=== PATIENT | female | born 1990 ===

== ENCOUNTER 2017-08-22 10:12 | Day surgery (SDC) | payer BC ==
[2017-08-20 08:20] VITALS: BMI 30.4
[2017-08-22] MEDS ORDERED: ceFAZolin 1 gm in NS 2 GM/200 ML BAG IVPB ONE (11:53)
[2017-08-22] MEDS ORDERED: Methylene Blue 10 mg/mL(10ml) IV ONE (11:53)
[2017-08-22] MEDS ORDERED: Sodium Chloride 0.9% 0 ML IV ONE (11:53)
[2017-08-22] MEDS: Lidocaine/Epinephrine 1% 1:100000 10 ML IJ ONE ×2 (12:32→13:22)
[2017-08-22] MEDS: Bupivacaine HCl 0.25% PF (30 ml) Inj ONE ×2 (12:32→13:22)
[2017-08-22] MEDS ORDERED: Midazolam 2 MG/2 ML VIAL ONE (13:12)
[2017-08-22] MEDS ORDERED: Propofol 10 mg/ml Inj (20 ML) ONE (13:12)
--- NOTE | 2017-08-22 14:03 | PCM.SURG1 ---
Surgeon's Initial Post Op Note - Surgeon's Notes Surgeon: Emre Del Real MD [facility] Department Supervisor: KASH Cohn Type of Anesthesia: MAC Pre-Operative Diagnosis: Recurrent Sebaceous cyst of right breast chest area. S /P I & D and debridement of sebaceous cyst 2 years ago Operative Findings: 2x1 cm sebaceous cyst of right breast/chest area Post-Operative Diagnosis: Recurrent Sebaceous cyst of right breast chest area. S/P I & D and debridement of sebaceous cyst 2 years ago Operation Performed: Excision of Sebaceous cyst of right breast/chest area. Revision of scar 3x1 cm. Layered closure of wound 3x2x2 cm Specimen/Specimens Removed: Sebaceous cyst. Revised scar Estimated Blood Loss: EBL {In ML}: 10 Blood Products Given: N/A Drains Used: No Drains Post-Op Condition: Good Date of Surgery/Procedure: 08/22/17 Time of Surgery/Procedure: 14:04
[2017-08-22 14:35] VITALS: BP 104/53; PULSE 66; RESP 18; TEMP 97.7; O2SAT 100
--- NOTE | 2017-08-22 23:45 | OP ---
PROCEDURE DATE: 08/22/2017 PREOPERATIVE DIAGNOSIS: Recurrent sebaceous cyst of the right breast chest area. POSTOPERATIVE DIAGNOSIS: Recurrent sebaceous cyst of the right breast chest area. PROCEDURE DONE: 1. Excision of the sebaceous cyst of the right breast chest area, 3 x 2 cm size. 2. Revision of the scar, 3 x 1 cm size. 3. Layered closure of the wound, 3 x 2 x 1 cm size. SURGEON: Willy Del Real MD FREELANCE DISPLAYER: MARCIN Cohn ANESTHESIA: General endotracheal tube anesthesia. ESTIMATED BLOOD LOSS: Around 10 mL. DRAINS: None. PATHOLOGY: 1. Sebaceous cyst was sent for pathology. 2. Revised scar tissue. COMPLICATIONS: None. INTRAOPERATIVE FINDINGS: The patient had approximately 2 x 1 cm sebaceous cyst of the right lower breast chest area, and the patient also had scar of the previous sebaceous cyst excision. DESCRIPTION OF PROCEDURE: On intraoperative steps, this is a 27-year-old female who was diagnosed with sebaceous cyst of the right breast chest area at the site of the previous sebaceous cyst incision and drainage and debridement. The patient was considered for excision, brought to the OR, placed supine on the operating table. After induction of the sedation, the right breast and chest area was prepped and draped in the usual sterile fashion. The elliptical incision was made surrounding the sebaceous cyst, and sebaceous cyst was completely excised. There was a scar on the superior part of the sebaceous cyst, now that one was also completely excised, and it was sent off the table for the pathology. The irrigation of the wound was done, and hemostasis was achieved. Now, the patient had approximately 3 x 2 x 2 cm wound defect, and the wound was closed in multiple layers. The upper flap was sutured to the underlying subcu, the lower flap was sutured to underlying subcu. The deep subcu sutured with 3-0 Vicryl. The superficial subcu sutured with 3-0 Vicryl, and skin with 4-0 Monocryl, and dry sterile dressing was applied. The patient tolerated the procedure well. Count of the instrument and gauze was correct. There was no apparent complication. The patient was reversed from sedation, and sent to the Postanesthesia Care Unit in stable condition. The local anesthesia was injected in the beginning of the procedure. The patient tolerated the procedure well. Count of the instrument and gauze was correct. Willy Del Real MD
== END 2017-08-22 14:45 | disposition home or self-care (01) ==
LOC: C.SDS 10:12
PROVIDERS: ATTEND Surgery Surgical Critical Care
DX: L72.3 Sebaceous cyst (principal); L72.0 Epidermal cyst; N60.81 Other benign mammary dysplasias of right breast; N60.89 Other benign mammary dysplasias of unspecified breast
CPT/HCPCS: 11403; 12032; 88305; J0690; J1885; J2250; J2704; J3010